=== PATIENT | male | born 1995 | race Caucasian/White ===

== ENCOUNTER 2019-09-23 01:07 | Emergency (ER) | payer OTHER, SELFPAY | END 2019-09-23 01:30 | disposition home or self-care (01) | LOC: M ED 01:07 | DX: T16.2XXA Foreign body in left ear, initial encounter (principal); X58.XXXA Exposure to other specified factors, initial encounter; Y92.89 Other specified places as the place of occurrence of the external cause; F17.200 Nicotine dependence, unspecified, uncomplicated ==

== ENCOUNTER 2019-11-13 01:05 | Emergency (ER) | payer OTHER, SELFPAY ==
[~2019-11-13] VITALS: Ht 180.3 cm; Wt 64.3 kg
[2019-11-13 03:03] VITALS: BP 116/74
--- NOTE | 2019-11-13 04:04 | REPVR ---
PROCEDURE INFORMATION: Exam: US Duplex Left Lower Extremity Veins, Limited Exam date and time: 11/13/2019 3:24 AM Age: 24 years old Clinical indication: Pain; Leg, lower; Left; Additional info: Pain left lower extremity TECHNIQUE: Imaging protocol: Real-time Duplex ultrasound of the Left Lower Extremity with 2-D anglin scale, color Doppler flow and spectral waveform analysis with image documentation. Limited exam focused on the left lower extremity veins. COMPARISON: No relevant prior studies available. FINDINGS: Left deep veins: Unremarkable. The common femoral, femoral, proximal profunda femoral and popliteal veins are patent without thrombus. Normal Doppler waveforms. Normal compressibility and/or augmentation response. Left superficial veins: Unremarkable. Saphenofemoral junction is patent without thrombus. Soft tissues: Unremarkable. IMPRESSION: No evidence of deep vein thrombosis. Electronically signed by: Ankit Mendez On 11/13/2019 04:03:44 AM
== END 2019-11-13 03:58 | disposition home or self-care (01) ==
LOC: M ED 01:05
DX: F41.9 Anxiety disorder, unspecified (principal); M79.605 Pain in left leg; F17.220 Nicotine dependence, chewing tobacco, uncomplicated